=== PATIENT | male | born 1945 | race Caucasian/White ===

== ENCOUNTER 2018-03-27 14:30 | Day surgery (SDC) | payer MEDICARE, BC ==
[~2018-03-27] VITALS: Ht 190.5 cm; Wt 85.1 kg
[2018-03-27] VITALS (9 sets, daily range): BP systolic 100–139; BP diastolic 66–88
[2018-03-27] MEDS ORDERED: normal saline 1000ml 1,000 ML IV SCH (15:15)
[2018-03-27] MEDS ORDERED: LORazepam 0.5 MG tablet PO PRN (15:15)
[2018-03-27] MEDS ORDERED: diphenhydrAMINE 25mg capsule PO PRN (15:15)
[2018-03-27] MEDS ORDERED: LIDOcaine/PRILOcaine 5gm cream TP ONE (15:45)
[2018-03-27] MEDS ORDERED: iohexol 350MG/ML 100ml bottle IV ONE (16:12)
[2018-03-27] MEDS ORDERED: heparin 1,000unit/ml 10ml vial 10 ML ONE (16:12)
[2018-03-27] MEDS ORDERED: LIDOcaine 1% (10mg/ml)w/preservative injection 20ml MDV ONE (16:12)
[2018-03-27] MEDS ORDERED: verapamil 2.5 mg/ml inj IV ONE (16:12)
[2018-03-27] MEDS ORDERED: nitroGLYCERIN-Tridil 50MG/D5W 250 ML IV ONE (16:12)
[2018-03-27] MEDS ORDERED: APIX5TAB3 PO (16:45)
[2018-03-27] MEDS ORDERED: SILD50TA PO (16:45)
[2018-03-27] MEDS ORDERED: fentaNYL/PF 50MCG/1 ML 2ML syringe ONE (17:10)
[2018-03-27] MEDS ORDERED: midazolam 2 mg/2 ml injection ONE (17:10)
[2018-03-27] MEDS ORDERED: proCHLORperazine 10 MG/2 ml inj IV PRN (18:15)
[2018-03-27] MEDS ORDERED: ondansetron/PF 4mg/2ml inj IV PRN (18:15)
[2018-03-27] MEDS ORDERED: OXAZEpam 15mg capsule PO PRN (18:15)
== END 2018-03-27 21:00 | disposition home or self-care (01) ==
LOC: SSTAY O 14:30
PROVIDERS: ATTEND Internal Medicine Interventional Cardiology
DX: I25.10 Atherosclerotic heart disease of native coronary artery without angina pectoris (principal); I48.2 Chronic atrial fibrillation; Z88.1 Allergy status to other antibiotic agents; Z87.442 Personal history of urinary calculi; Z98.41 Cataract extraction status, right eye; Z98.42 Cataract extraction status, left eye; Z72.89 Other problems related to lifestyle; Z79.01 Long term (current) use of anticoagulants; Z79.899 Other long term (current) drug therapy; Z88.8 Allergy status to other drugs, medicaments and biological substances
CPT/HCPCS: 93005; 93458; 99152; 99153; A6257; A6258; C1769; J1644; J2001; J2250; J3010; J3490; J7030; Q0163; Q9967; A4620

== ENCOUNTER 2020-01-12 08:39 | Emergency (ER) | payer MEDICARE, BC ==
[~2020-01-12] VITALS: Ht 188 cm; Wt 81.8 kg
[~2020-01-12 08:39] MED LIST: APIX5TAB3 PO; SILD50TA PO
[2020-01-12] MEDS ORDERED: ringers solution, lacted 1,000 ML IV ONE (08:55)
[2020-01-12 09:15] LABS: BASOPHILS # (AUTO) 0.1 X10'3 (0-0.2); LYMPHOCYTES # (AUTO) 1.6 X10'3 (1.1-4.8); MEAN CORPUSCULAR HGB CONC 33.2 g/dL (33.0-36.5); MONOCYTES # (AUTO) 0.7 X10'3 (0-0.9); WHITE BLOOD COUNT 7.4 X10'3 (4.5-11.0)
[2020-01-12 09:16] LABS: BASOPHILS % (AUTO) 0.8 % (0-1); EOSINOPHILS % (AUTO) 0.5 % (0-6); HEMATOCRIT 43.6 % (42.0-52.0); HEMOGLOBIN 14.5 g/dl (14.0-17.9); LYMPHOCYTES % (AUTO) 21.5 % (21-51); MEAN CORPUSCULAR HEMOGLOBIN 29.1 PG (27.0-31.0); MEAN CORPUSCULAR VOLUME 87.6 FL (78-98); MEAN PLATELET VOLUME 9.5 FL (7.4-10.4); MONOCYTES % (AUTO) 9.6 % (2-12); NEUTROPHILS % (AUTO) 67.6 % (42-75); PLATELET COUNT 177 X10'3 (140-440); RED BLOOD COUNT 4.98 X10'6 (4.70-6.10); RED CELL DISTRIBUTION WIDTH 16.6 % (11.5-14.5)
[2020-01-12 09:30] LABS: ALANINE AMINOTRANSFERASE 31 U/L (12-78); ALBUMIN 3.4 G/DL (3.4-5.0); ALBUMIN/GLOBULIN RATIO 0.9 (1.1-1.5); ALKALINE PHOSPHATASE 78 IU/L (46-116); ANION GAP 9 (8-16); ASPARTATE AMINO TRANSFERASE 30 U/L (10-37); BILIRUBIN,TOTAL 0.6 MG/DL (0.1-1.0); BLOOD UREA NITROGEN 16 MG/DL (7-18); BUN/CREATININE RATIO 13.3 (5.4-32.0); CALCIUM 8.8 MG/DL (8.5-10.1); CHLORIDE 107 MMOL/L (99-107); GLUCOSE 111 MG/DL (70-104); POTASSIUM 3.7 MMOL/L (3.5-5.1); SODIUM 140 MMOL/L (135-145); TOTAL CARBON DIOXIDE 24.4 MMOL/L (24-32); eGFR 59 ML/MIN
[2020-01-12 09:48] LABS: CLARITY,URINE CLEAR (Clear); COLOR,URINE YELLOW (Yellow); GLUCOSE, URINE NEGATIVE (Neg); KETONES,URINE NEGATIVE (Neg); LEUKOCYTE ESTERASE ,URINE NEGATIVE (Neg); NITRITES, URINE NEGATIVE (Neg); OCCULT BLOOD,URINE TRACE-INTACT (Neg); PROTEIN,URINE NEGATIVE (Neg); UROBILINOGEN,URINE 0.2 E.U/dL (0.2-1.0)
[2020-01-12 09:49] LABS: UA COLLECTION TYPE URINAL
[2020-01-12 09:52] LABS: BACTERIA,URINE NONE SEEN /HPF (Neg); MUCUS STRANDS FEW /LPF (Neg); RBC,URINE 0-2 /HPF (0-2); SQUAMOUS EPITHELIAL CELL,UR NONE SEEN /LPF (FEW); WBC,URINE NONE SEEN /HPF (0-4)
[2020-01-12 09:53] LABS: SPERM FEW /HPF (NEGATIVE)
[2020-01-12 10:14] VITALS: BP 120/77
== END 2020-01-12 11:05 | disposition home or self-care (01) ==
LOC: ER 08:40
DX: S91.211A Laceration without foreign body of right great toe with damage to nail, initial encounter (principal); S80.211A Abrasion, right knee, initial encounter; R55 Syncope and collapse; I95.1 Orthostatic hypotension; I48.91 Unspecified atrial fibrillation; R42 Dizziness and giddiness; E78.00 Pure hypercholesterolemia, unspecified; Z88.8 Allergy status to other drugs, medicaments and biological substances; Z79.01 Long term (current) use of anticoagulants; Z79.899 Other long term (current) drug therapy
CPT/HCPCS: 36415; 71045; 80053; 81001; 84484; 85025; 93005; 96360; 99285; J7120

== ENCOUNTER 2020-12-30 10:38 | Day surgery (SDC) | payer MEDICARE, BC ==
[2020-12-26 09:06] LABS: BASOPHILS # (AUTO) 0.1 X10'3 (0-0.2); BASOPHILS % (AUTO) 1.1 % (0-1); EOSINOPHILS % (AUTO) 0.6 % (0-6); HEMATOCRIT 39.7 % (42.0-52.0); LYMPHOCYTES # (AUTO) 1.6 X10'3 (1.1-4.8); LYMPHOCYTES % (AUTO) 32.6 % (21-51); MEAN CORPUSCULAR HEMOGLOBIN 27.5 PG (27.0-31.0); MEAN CORPUSCULAR HGB CONC 32.7 g/dL (33.0-36.5); MEAN PLATELET VOLUME 8.9 FL (7.4-10.4); MONOCYTES # (AUTO) 0.6 X10'3 (0-0.9); MONOCYTES % (AUTO) 12.9 % (2-12); NEUTROPHILS # (AUTO) 2.5 X10'3 (1.8-7.7); NEUTROPHILS % (AUTO) 52.8 % (42-75); PLATELET COUNT 187 X10'3 (140-440); RED BLOOD COUNT 4.72 X10'6 (4.70-6.10); RED CELL DISTRIBUTION WIDTH 18.8 % (11.5-14.5); WHITE BLOOD COUNT 4.8 X10'3 (4.5-11.0)
[2020-12-26 09:17] LABS: ALBUMIN 3.4 G/DL (3.4-5.0); ANION GAP 5 (8-16); BLOOD UREA NITROGEN 18 MG/DL (7-18); BUN/CREATININE RATIO 14.8 (5.4-32.0); CALCIUM 8.8 MG/DL (8.5-10.1); CHLORIDE 106 MMOL/L (99-107); CREATININE 1.22 MG/DL (0.60-1.10); GLUCOSE 96 MG/DL (70-104); POTASSIUM 4.7 MMOL/L (3.5-5.1); SODIUM 141 MMOL/L (135-145); TOTAL CARBON DIOXIDE 29.9 MMOL/L (24-32); eGFR 58 ML/MIN
[2020-12-26 09:18] LABS: PARTIAL THROMBOPLASTIN TIME 31 SECONDS (22-32)
[2020-12-26 10:14] LABS: ACANTHOCYTES 1+; ANISOCYTOSIS 2+; ELLIPTOCYTES 1+; PLATELET ESTIMATE NORMAL; SCHISTOCYTES FEW
[~2020-12-30] VITALS: Ht 190.5 cm; Wt 76.0 kg
[2020-12-30] VITALS (12 sets, daily range): BP systolic 103–146; BP diastolic 59–77
[2020-12-30] MEDS ORDERED: fentaNYL/PF 50MCG/1 ML 2ML syringe IV ONE (10:55)
[2020-12-30] MEDS ORDERED: MIDAZolam 1mg/ml 10ml vial IV ONE (10:55)
[2020-12-30] MEDS ORDERED: normal saline 1000ml 1,000 ML IV SCH (10:55)
[2020-12-30] MEDS ORDERED: ATOR20TA66 PO (11:19)
[2020-12-30] MEDS ORDERED: POTA20PA40 PO (11:19)
[2020-12-30] MEDS ORDERED: FURO40TA4 PO (11:19)
[2020-12-30] MEDS ORDERED: AMIO200T27 PO (11:19)
[2020-12-30] MEDS ORDERED: METO25TA6 PO (11:19)
== END 2020-12-30 14:45 | disposition home or self-care (01) ==
LOC: SSTAY O 10:38
PROVIDERS: ATTEND Internal Medicine Interventional Cardiology
DX: I48.91 Unspecified atrial fibrillation (principal); I50.22 Chronic systolic (congestive) heart failure; I25.10 Atherosclerotic heart disease of native coronary artery without angina pectoris; I08.1 Rheumatic disorders of both mitral and tricuspid valves; I27.20 Pulmonary hypertension, unspecified; E78.49 Other hyperlipidemia; Z79.899 Other long term (current) drug therapy; Z79.01 Long term (current) use of anticoagulants; Z88.8 Allergy status to other drugs, medicaments and biological substances
CPT/HCPCS: 36415; 80048; 85025; 85610; 85730; 92960; 93005; 94760; 94799; J2250; J3010; J7030; 85008